=== PATIENT | female | born 1975 | race Caucasian/White ===

== ENCOUNTER 2021-03-12 21:02 | Emergency (ER) | payer OTHER ==
[2021-03-12 21:12] VITALS: BMI 36.2
[2021-03-12 23:10] LABS: BASO % 0.6 % (0-2.0); EOS % 3.2 % (0-4.5); HEMATOCRIT 35.6 % (32.4-45.2); HEMOGLOBIN 12.3 GM/dL (10.7-15.3); LYMPH % 18.6 % (8-40); MCH 30.3 pg (25.7-33.7); MCHC 34.4 g/dl (32.0-36.0); MEAN CELL VOLUME 87.9 fl (80-96); MEAN PLT VOLUME 7.6 fl (7.5-11.1); MONO % 8.8 % (3.8-10.2); NEUT % 68.8 % (42.8-82.8); PLATELET COUNT 316 10^3/uL (134-434); RBC 4.05 M/mm3 (3.60-5.2); RDW 15.5 % (11.6-15.6); WHITE BLOOD COUNT 6.4 K/mm3 (4.0-10.0)
[2021-03-12 23:20] LABS: INR 1.07 (0.83-1.09); PROTHROMBIN TIME (PATIENT) 12.5 SEC (9.7-13.0)
[2021-03-12 23:22] LABS: ACTIVATED PTT 31.9 SECONDS (25.2-36.5)
[2021-03-12 23:30] LABS: CALCIUM 8.8 mg/dL (8.5-10.1)
[2021-03-12 23:31] LABS: ALBUMIN 3.8 g/dl (3.4-5.0); BLOOD UREA NITROGEN 11.6 mg/dL (7-18)
[2021-03-12 23:34] LABS: CREATININE 0.7 mg/dL (0.55-1.3)
[2021-03-12 23:35] LABS: BILIRUBIN,TOTAL 0.3 mg/dL (0.2-1); TOT PROT 7.9 g/dl (6.4-8.2)
[2021-03-13 03:13] VITALS: BP 122/76; PULSE 89; TEMP 98.9
== END 2021-03-13 03:14 | disposition home or self-care (01) ==
LOC: JER 21:02 → JERFT 21:02 → JER 03-13 03:14
DX: U07.1 COVID-19 (principal)
CPT/HCPCS: 36415; 70491-TC; 80053; 84703; 85025; 85610; 85730; 87804; 93005; 93010; 99284-25; C9803; Q9967; U0003; U0005